=== PATIENT | female | born 1985 | race Caucasian/White ===

== ENCOUNTER 2022-03-03 14:34 | Outpatient (CLI) | payer OTHER, SELFPAY ==
[2022-03-03 21:28] LABS: Albumin* 4.1 g/dL (3.3-5.0); Chloride* 108 mmol/L (96-114)
[2022-03-03 21:29] LABS: Potassium* 3.9 mmol/L (3.6-5.1); Sodium* 138 mmol/L (135-149)
[2022-03-03 21:31] LABS: Aspartate Amino Transferase* 21 U/L (12-35); Bilirubin Total* 0.3 mg/dL (0.1-1.5); Carbon Dioxide* 20 mmol/L (20-32); Creatinine* 0.7 mg/dL (0.5-1.5); Estimated Glomerular Filt Rate 114.88; Total Protein* 6.7 g/dL (6.0-8.3)
[2022-03-03 21:32] LABS: Alanine Aminotransferase* 25 U/L (4-35); Alkaline Phosphatase* 87 U/L (40-150); Blood Urea Nitrogen* 12 mg/dL (5-24); Calcium* 9.2 mg/dL (8.4-10.6); Glucose* 114 mg/dL (60-115)
== END 2022-03-03 14:35 | disposition home or self-care (01) ==
LOC: KYNREF 14:35
PROVIDERS: PCP Nurse Practitioner Family; Visit Provider Nurse Practitioner Family
DX: R10.13 Epigastric pain (principal); R10.11 Right upper quadrant pain
CPT/HCPCS: 36415; 80053

== ENCOUNTER 2022-03-05 08:12 | Outpatient (CLI) | payer OTHER, SELFPAY ==
--- NOTE | 2022-03-05 08:15 | US_ITS ---
Final Report Patient: DIANA HENDERSON Facility:?[facility] Patient ID:?[id number] Site Patient ID:?[id number]. Site :?[id number] Study:?US Abdomen RUQ-03/05/2022 9:02:26 AM Ordering Physician:Nathan Vargas Final Report: CLINICAL HISTORY: Epigastric pain FINDINGS: Increased echogenicity of the liver. There is a normal appearance of the hepatic IVC and proximal abdominal aorta. There is no evidence of ascites. Multiple stones in the gallbladder. The gallbladder wall measures 4 mm in thickness. No pericholecystic fluid. The common bile duct is of normal size and measures 3 mm in diameter at the level of the mary hepatis. The pancreas appears normal. There is no evidence of a stone or hydronephrosis within the right kidney. The right kidney measures 11.7 Cm in length. IMPRESSION: Cholelithiasis. Mild gallbladder wall thickening measuring 4 millimeters. No pericholecystic fluid. Dictated by Mary Chapa MD @ 03/05/2022 9:12:10 AM (Electronic Signature)
== END 2022-03-05 08:13 | disposition home or self-care (01) ==
PROVIDERS: PCP Nurse Practitioner Family; Visit Provider Nurse Practitioner Family
DX: R10.13 Epigastric pain (principal); K80.20 Calculus of gallbladder without cholecystitis without obstruction
CPT/HCPCS: 76705

== ENCOUNTER 2022-03-16 07:17 | Day surgery (SDC) | payer OTHER, SELFPAY ==
[2022-03-16] VITALS (18 sets, daily range): BP systolic 98–133; BP diastolic 51–87; PULSE 56–88; RESP 16–18; TEMP 36.4–37.2; O2SAT 59–95; BMI 38.9
[2022-03-16] MEDS: LACTATED RINGERS 1000 ML 1,000 ML 100 ML IV ×2 (07:00→09:31)
[2022-03-16] MEDS: LACTATED RINGERS 1000 ML 1,000 ML 35 ML IV (07:00)
[2022-03-16 07:54] LABS: HCG Qualitative* Negative (Negative)
[2022-03-16] MEDS: SODIUM CHLORIDE 0.9 % (FLUSH) 10 ML SYRINGE IVF (08:08)
[2022-03-16] MEDS: SCOPOLAMINE 1 MG/3 DAY PATCH 1 PATCH TD (08:21)
[2022-03-16] MEDS: CEFAZOLIN 2 GM INJ IVP (08:55)
[2022-03-16] MEDS: BUPIVACAINE 0.25% 30 ML 10 ML INJECTION (09:10)
--- NOTE | 2022-03-16 10:25 | W.ANESCHARGE ---
Anesthesia Charges Start Date/Time Anesthesia Start Date: 03/16/22 Anesthesia Start Time: 08:41 Stop Date/Time Anesthesia Stop Date: 03/16/22 Anesthesia Stop Time: 10:22 Summary Emergency: No
--- NOTE | 2022-03-16 10:31 | P.GSOP_ITS ---
Operative Note Date of procedure: 03/16/22 Type of Procedure: 1. Laparoscopic cholecystectomy. Procedure Description: After discussing the risks and benefits of the procedure, the patient signed informed consent.? The operative site was marked and the patient was brought to the operating room and placed on the operating table in supine position.? Care was taken to pad the patient's pressure points.?? The patient was then iIntubated by anesthesia.?? The operative site was then prepped and draped in the usual sterile fashion.? A time-out was then performed. A 5-mm laparoscopy port was placed in the left upper quadrant guided by a 5-mm laparoscope placed into a translucent trochar.~ Passage through the layers of the abdominal wall was visualized with the laparoscope.~ A pneumoperitoneum was established. A 0-degree 5-mm laparoscope was advanced into the abdomen. The abdomen was briefly surveyed, and no adhesions were noted. A 10-mm port were placed infraumbilically and two more 5 mm ports were placed on the right under direct visualization by laparoscope. The camera was then changed to 10 mm 30- degree scope and placed into the abdomen through the 10 mm port. The left upper quadrant port entrance was examined and no injury to intra-abdominal organs was identified. The gallbladder was identified, the fundus grasped and retracted cephalad. Omentum was adherent to the anterior surface of the gallbladder. Those adhesions were taken down with hook cautery. The infundibulum was grasped and retracted laterally, exposing the peritoneum overlying the triangle of Calot. This was then divided and exposed in a blunt fashion and with hook cautery. Common bile duct was not identified but care was taken not to injure it. The cystic duct was clearly identified and bluntly dissected circumferentially. Cystic artery was identified and tissues around it were dissected off. The node of Calot was minimally enlarged and was overlying the cystic artery. The node of Calot was divided proximally and the tissue on the patient's side was clipped with a 5 mm clip to prevent bleeding. The cystic artery and the cystic duct were clearly going into the gallbladder. The cystic duct was then doubly ligated with surgical clips on the patient's si de and singly clipped on the gallbladder side and divided. The cystic artery was then similarly ligated with clips and divided as well. The gallbladder was dissected from the liver bed in retrograde fashion using hookcautery. The gallbladder was placed into an Endo-Catch bag and removed through the infraumbilical incision. Surgical site was examined for bleeding. No bleeding was seen in the surgical field. The fascia of the infraumbilical incision was then closed with 0-0 vicryl under direct visualization. This closure was examined intra-abdominally and no intra- abdominal organs were noted to be incarcerated in the closure. Pneumoperitoneum was completely reduced after viewing removal of the trocars under direct vision. The skin was then closed with 4-0 monocryl and steristrips were applied. Instrument, sponge, and needle counts were correct at closure and at the conclusion of the case. The patient was transferred to PACU in stable condition. ? Sterile dressings were then applied. ? The patient was then woken and transported to the recovery area in stable condition. ? The patient tolerated the procedure well. Findings: Omentum adherent to the gallbladder suggestive of chronic inflammation. No acute inflammation was noted in the gallbladder wall. Anesthesia: GETA Surgeon: Leonardo Lujan MD Estimated blood loss (mL): 5 Condition: stable Disposition: PACU
[2022-03-16] MEDS: METOCLOPRAMIDE HCL 5 MG/ML INJ 10 MG IVP (10:33)
[2022-03-16] MEDS: fentaNYL 100 MCG/2 ML inj 50 MCG IVP ×3 (10:37→10:56)
[2022-03-16] MEDS: MEPERIDINE 25 MG/ML INJ 12.5 MG IVP (11:13)
[2022-03-16] MEDS: HYDROCODONE-ACETAMIN 5-325 MG 1 TAB PO (11:40)
--- NOTE | 2022-03-16 14:28 | W.ANESCHARGE ---
Anesthesia Charges Start Date/Time Anesthesia Start Date: 03/16/22 Anesthesia Start Time: 08:41 Stop Date/Time Anesthesia Stop Date: 03/16/22 Anesthesia Stop Time: 10:22 Summary Emergency: No
== END 2022-03-16 12:45 | disposition home or self-care (01) ==
PROVIDERS: PCP Nurse Practitioner Family; Visit Provider Surgery
PROC: 0FT44ZZ Resection of Gallbladder, Percutaneous Endoscopic Approach (ICD-10-PCS; CPT 47562; principal; 2022-03-16 08:30)
DX: K80.10 Calculus of gallbladder with chronic cholecystitis without obstruction (principal); K82.8 Other specified diseases of gallbladder
CPT/HCPCS: 47562; 00790; 84703; 88304; A9270; J0330; J0690; J1100; J1200; J1885; J2175; J2704; J2710; J2765; J3010; J3490; J7120

== ENCOUNTER 2023-07-08 10:06 | Outpatient (CLI) | payer OTHER, SELFPAY | END 2023-07-08 10:07 | disposition home or self-care (01) | PROVIDERS: PCP Nurse Practitioner Family; Visit Provider Nurse Practitioner Family | DX: E66.9 Obesity, unspecified (principal); Z12.31 Encounter for screening mammogram for malignant neoplasm of breast; Z13.1 Encounter for screening for diabetes mellitus; Z13.0 Encounter for screening for diseases of the blood and blood-forming organs and certain disorders involving the immune mechanism | CPT/HCPCS: 82607; 84443; 85025 ==

== ENCOUNTER 2025-08-06 09:08 | Outpatient (CLI) | payer OTHER, SELFPAY ==
[2025-08-06 14:21] LABS: PCR FLU A Negative PCR FLU A (Negative); PCR FLU B Negative PCR FLU B (Negative); PCR RSV Negative PCR RSV (Negative); SARS PCR* Negative SARS-CoV-2 (Negative)
== END 2025-08-06 09:09 | disposition home or self-care (01) ==
LOC: KYNREF 09:08
PROVIDERS: PCP Nurse Practitioner Family; Visit Provider Nurse Practitioner Family
DX: R05.9 Cough, unspecified (principal)
CPT/HCPCS: 87631